=== PATIENT | female | born 1990 | race Caucasian/White ===

== ENCOUNTER 2018-01-03 05:55 | Day surgery (SDC) | payer OTHER ==
[2017-12-27 09:36] LABS: APPEARANCE,URINE CLEAR; BILIRUBIN,URINE NEGATIVE (NEGATIVE); COLOR,URINE YELLOW; GLUCOSE, URINE NEGATIVE (NEGATIVE); KETONES,URINE NEGATIVE (NEGATIVE); LEUKOCYTE ESTERASE,URINE TRACE (NEGATIVE); NITRITE,URINE NEGATIVE (NEGATIVE); PROTEIN,URINE NEGATIVE (NEGATIVE); URINE SPECIFIC GRAVITY 1.018
--- NOTE | 2017-12-27 09:58 | RADIOLOGY REPORT (SQ) ---
EXAM DESCRIPTION: CHEST PA/LATERAL COMPLETED DATE/TIME: 12/27/2017 9:47 am REASON FOR STUDY: PRE OP COMPARISON: None. EXAM PARAMETERS: NUMBER OF VIEWS: two views TECHNIQUE: Digital Frontal and Lateral radiographic views of the chest acquired. RADIATION DOSE: NA LIMITATIONS: none FINDINGS: LUNGS AND PLEURA: No acute infiltrates or effusions. . MEDIASTINUM AND HILAR STRUCTURES: No masses or contour abnormalities. HEART AND VASCULAR STRUCTURES: The heart is normal with normal pulmonary vasculature. BONES: No acute findings. HARDWARE: None in the chest. OTHER: No other significant finding. IMPRESSION: NO ACUTE DISEASE. TECHNICAL DOCUMENTATION: JOB ID: [id number] 2010 [email or web address]- All Rights Reserved Reading location - IP/workstation name: [email or web address]
[2017-12-27 10:16] LABS: HEMATOCRIT 43.5 % (36.0-47.0); HEMOGLOBIN 14.6 g/dL (12.0-15.5); MEAN CORPUSCULAR HGB CONC 33.6 g/dL (32.0-36.0); MEAN CORPUSCULAR VOLUME 87 fl (80-97); PLATELET COUNT 262 10^3/uL (150-450); RED BLOOD COUNT 5.03 10^6/uL (3.72-5.28); WHITE BLOOD COUNT 7.4 10^3/uL (4.0-10.5)
[2017-12-27 10:53] LABS: ANION GAP 14 (5-19); BLOOD UREA NITROGEN 14 mg/dL (7-20); CALCIUM 9.6 mg/dL (8.4-10.2); CARBON DIOXIDE 27 mmol/L (22-30); CHLORIDE 103 mmol/L (98-107); GLUCOSE 86 mg/dL (75-110); POTASSIUM 4.6 mmol/L (3.6-5.0); SODIUM 144.2 mmol/L (137-145)
--- NOTE | 2017-12-27 22:52 | EKG REPORT ---
SEVERITY:- NORMAL ECG - SINUS RHYTHM : Confirmed by: Chika Clancy 27-Dec-2017 19:52:29
[~2018-01-03 05:55] MED LIST: CEFAZOLIN SODIUM 2 GM in DEXTROSE 5%-WATER 100 ML IV PRN; LACTATED RINGERS 1000 ML IV PRN; LIDOCAINE 0.5% INJ-PF (5 MG/ML) 50 ML SDV SUBCUT PRN
[2018-01-03] MEDS ORDERED: LIDOCAINE 1% INJ-PF (10 MG/ML) 30 ML SDV ONE (07:11)
[2018-01-03] MEDS ORDERED: BUPIVACAINE HCL 0.5 % INJ/PF 30 ML SDV ONE ×2 (07:11→08:16)
[2018-01-03] MEDS ORDERED: LIDOCAINE 1%/EPINEPHRINE INJ 20 ML VIAL ONE ×2 (07:12→08:16)
[2018-01-03] MEDS ORDERED: MIDAZOLAM 2 MG/2 ML INJ ONE (08:01)
[2018-01-03] MEDS ORDERED: FENTANYL CITRATE INJ/PF 100 MCG/2 ML AMPUL ONE (08:01)
[2018-01-03] MEDS ORDERED: PROPOFOL INJ 200 MG/20 ML VIAL IV ONE (08:01)
[2018-01-03] MEDS ORDERED: PROMETHAZINE HCL INJ 25 MG/1 ML VIAL IV PRN ×2 (08:27)
[2018-01-03] MEDS ORDERED: MORPHINE SULFATE 10 MG/ML INJ IV PRN (08:27)
[2018-01-03] MEDS ORDERED: MEPERIDINE HCL/PF INJ 25 MG/1 ML DISP.SYRIN IV PRN (08:27)
[2018-01-03] MEDS ORDERED: OXYCODONE-ACETAMINOPHEN 5-325 MG TABLET PO PRN ×2 (08:27)
[2018-01-03] MEDS ORDERED: FENTANYL CITRATE INJ/PF 100 MCG/2 ML AMPUL IV PRN ×3 (08:27)
[2018-01-03] MEDS ORDERED: DIPHENHYDRAMINE HCL 50 MG/ML VIAL IV PRN (08:27)
--- NOTE | 2018-01-03 08:49 | Operative Report ---
Operative Report DATE OF SURGERY: 01/03/18 PREOPERATIVE DIAGNOSIS: Right knee synovial cyst, right lateral compartment osteochondral lesion POSTOPERATIVE DIAGNOSIS: Right lateral meniscal tear. Right lateral tibial plateau chondral cleft. Right medial para meniscal synovial cyst OPERATION: Arthroscopic right partial lateral meniscectomy. Right open synovial cyst excision SURGEON: AMI BRIGGS ANESTHESIA: LMAC TISSUE REMOVED OR ALTERED: Synovial cyst to pathology ESTIMATED BLOOD LOSS: Minimal PROCEDURE: With the patient supine on the operating table. The right lower extremity is prepped and draped in sterile fashion. The knee is insufflated with combination combination of Marcaine, Xylocaine, and epinephrine. Subsequent medial lateral patella portals are created for the introduction of arthroscope and debridements mutation. Joint is examined in systematic fashion. A degenerative tear of the lateral meniscus is identified and this is debrided using electric frequency ablation probe from approximately 8:00 to 11:00 on the face of the dial. There is a anterior posterior cleft that goes through the lateral compartment tibial plateau that measures potentially 2 mm in depth. There is not any chondral loss in that the 2 edges of the cleft are opposed. The cleft is probed using a an anatomy probe and there is no chondral pieces that seem to be flaking off. A decision was made at this point to leave this intact as opposed to debriding it and performing microfracture. The arthroscopic equipment is removed and the portals reapproximated interrupted nylon. Subsequently over the anteromedial aspect of the right knee the skin is insufflated with accommodation Marcaine, Xylocaine, and epinephrine. A 1-1/2 cm oblique incision is made with in line with the previous scar and sharp dissection was carried incision down to the knee capsule. The meniscal cyst is identified and excised in total. It sent off to pathology. The wound is irrigated and closure was interrupted Vicryl followed by nylon. Sterile compressive dressings applied and the patient's return to the PACU in satisfactory condition.
[2018-01-03] MEDS ORDERED: OXYCODONE HCL IR 5 MG TABLET PO PRN (09:04)
[2018-01-03] MEDS ORDERED: ONDANSETRON 4 MG TAB.RAPDIS SL PRN (09:05)
[2018-01-03 11:20] VITALS: BP 109/56
== END 2018-01-03 10:35 | disposition home or self-care (01) ==
LOC: OROUT 05:55
PROVIDERS: ATTEND Orthopaedic Surgery
DX: M23.300 Other meniscus derangements, unspecified lateral meniscus, right knee (principal); M71.38 Other bursal cyst, other site; M24.10 Other articular cartilage disorders, unspecified site; F17.210 Nicotine dependence, cigarettes, uncomplicated
CPT/HCPCS: 93005; 36415; 85027; 81025; 80048; 81001; 88304 ×2; 71046; 93010; 29881; 27347; J2250; J3490 ×2; J0690; J3010; J2704; 1400